=== PATIENT | female | born 1970 | race Caucasian/White ===

== ENCOUNTER 2021-03-30 15:33 | Emergency (ER) | payer BC ==
[2021-03-30] MEDS ORDERED: Dextrose 5%-Lactated Ringers 1,000 ML IV SCH (16:15)
[2021-03-30] MEDS ORDERED: diphenhydrAMINE 50 MG/ML SDV IVPUSH ONE (16:15)
[2021-03-30] MEDS ORDERED: Haloperidol Lactate 5 MG/ML SDV IM ONE (16:15)
--- NOTE | 2021-03-30 16:35 | CR ---
INDICATION: SOB TECHNIQUE: Chest 2 views. COMPARISON: None. FINDINGS: Cardiovascular and mediastinum: Heart size and vasculature are normal in caliber and appearance. Mediastinum is within normal limits. Lungs and pleural spaces: Lungs are clear. No sign of infiltrate or mass. No sign of pleural effusion. No pneumothorax. Bones and soft tissues: No significant findings. IMPRESSION: Unremarkable chest. Dictated by: Froylan Carmen MD @ 03/30/2021 16:33:15 (Electronically Signed)
[2021-03-30 17:00] LABS: BLOOD UREA NITROGEN,BUN 16 mg/dL (7.0-18.0); CARBON DIOXIDE,CO2 26.7 mmol/L (21.0-32.0); CHLORIDE,CL 98 mmol/L (98-107); GLUCOSE RANDOM 155 mg/dL (74-106); LIPASE 29 U/L (73-393); POTASSIUM,K 3.5 mmol/L (3.5-5.1); SODIUM,NA 135 mmol/L (136-145)
--- NOTE | 2021-03-30 17:24 | PCM.EKG ---
#1 Interpretation EKG Date: 03/30/21 Time: 16:26 Rhythm: NSR Rate (Beats/Min): 60 [place]: Normal P-Wave: Present QRS: Normal ST-T: Normal QT: Normal Comparison: NA - No Prior EKG EKG Interpretation Comments: Sinus Rhythm
--- NOTE | 2021-03-30 17:39 | EDM.PDOC ---
ED HPI GENERAL MEDICAL PROBLEM - General Chief Complaint: General Stated Complaint: JUST NOT FEELING WELL Time Seen by Provider: 03/30/21 15:40 - History of Present Illness INITIAL COMMENTS - FREE TEXT/NARRATIVE: CHIEF COMPLAINT(S): Not feeling well HISTORY OF PRESENT ILLNESS: This is a 50-year-old woman with a recent diagnosis of community-acquired pneumonia on antibiotics who comes to the emergency department with a chief complaint of not feeling well.. She states that she was seen at outside ER and was diagnosed with a pneumonia. She states that she has been taking the medications and still does not feel well. She states that she feels severely fatigued, is experiencing nausea but denies any pain. She states that when she went to the ER over there they gave her nitroglycerin and then told her there was nothing wrong with her heart and sent her home. She currently denies any chest pain, recent travel, recent surgery, prior history of DVT or PE. She denies any family history of early onset CAD or sudden at young age. She states that she is mainly concerned because she has not urinated today and she feels dehydrated. In addition she stated that since her son's in 2019 after he was murdered is when all of her medical problems started. She had multiple other stressors in life at that time. She denies any SI, HI. REVIEW OF SYSTEMS: Constitutional: Denies fever, chills. Eyes: Denies eye pain Ears, Nose, Mouth, & Throat: Denies earache Cardiovascular: Denies chest pain Respiratory: Denies shortness of breath Gastrointestinal: Positive for nausea. Denies abdominal pain, vomiting, diarrhea, hematochezia, hematemesis, bilious emesis Genitourinary: Positive for decreased urination. Denies hematuria Skin:Denies a rash MSK: Denies joint pain Neurological: Denies blurred vision Psychiatric: Denies depression PAST MEDICAL HISTORY: As per history of present illness and as reviewed below otherwise noncontributory. SURGICAL HISTORY: As per history of present illness and as reviewed below otherwise noncontributory. SOCIAL HISTORY: As per history of present illness and as reviewed below otherwise noncontributory. FAMILY HISTORY: As per history of present illness and as reviewed below otherwise noncontributory. EXAMINATION OF ORGAN SYSTEMS/BODY AREAS: Constitutional: Blood pressure is 142/103, heart rate 81, respiratory rate 20 with an oxygen saturation 98% on room air. Temperature 35.5 temporal General: Overall well-appearing woman who is in no acute distress Psychiatric: Appears mildly anxious and intermittently crying Eyes: No scleral icterus or conjunctival erythema ENMT: Mildly dry mucous membranes. No pharyngeal erythema. Cardiovascular: Regular, rate, and rhythm. No gallops, murmurs, or rubs. Bilateral upper extremity pulses symmetric and intact. No peripheral edema. No JVD. Respiratory: Lungs clear to auscultation bilaterally. No wheezes, rales, or rhonchi. Gastrointestinal: Soft, non-tender, non-distended. Mildly hyperactive bowel sounds no rebound or guarding Genitourinary: No suprapubic tenderness Musculoskeletal: Normal range of motion. Skin: No lesions or abrasions. Neurological: Alert, GCS 15 MEDICAL DECISION MAKING AND COURSE IN THE ED WITH INTERPRETATION/REVIEW OF DIAGNOSTIC STUDIES: This is a 50-year-old woman in with a recent diagnosis of who comes to the emergency department with generalized fatigue and not feeling well after having diagnosis of pneumonia at outside ER. The patient's vitals are normal. The temporal temperature at this time is low however she does not feel febrile. At this time it is uncertain as to what is causing the patient's symptoms however it does sound more like viral syndrome to me. Will obtain a broad work-up including CBC, CMP, lipase, magnesium, troponin, [id number] glucose. Will obtain a repeat 2 view chest x-ray. EKG was obtained which did not reveal any acute signs of ischemia. We will provide the patient Haldol and Benadryl for nausea relief and pain relief and provide her with 1 L of D5 lactated Ringer's. Laboratory: CBC does reveal a leukocytosis of 15.26 with normal indices and no left shift. CMP reveals hyponatremia at 135, mildly elevated creatinine at 1.1, hyperglycemia at 155, [id number] glucose was 148, troponin is negative and lipase is normal. The radiological images were viewed by myself along with reading the report from the radiologist. 2 view chest x-ray does not reveal any acute cardiopulmonary process. No evidence of any consolidation. After period of observation the patient was asking to leave the emergency department. At this time I do believe the patient is stable for discharge. Encourage the patient to continue with her antibiotics and that I would send her prescription for antinausea medication to be used for nausea every 6 hours. She is to return for any new or worsening symptoms such as chest pain, worsening shortness of breath, or inability to tolerate any fluids. She was amenable discharge and had no further questions DISPOSITION: The patient was discharged home in stable condition. The patient will follow up with primary care physician in 2 to 3 days CONDITION: Fair PROCEDURES: None FINAL IMPRESSION(S)/DIAGNOSES: 1. Acute viral syndrome Julio C Valdez M.D. chest Pain Score (Numeric/FACES): 5 - Related Data Allergies Allergy/AdvReac Type Severity Reaction Status Date / Time morphine Allergy Swelling Verified 03/30/21 15:53 Penicillins Allergy Swelling Verified 03/30/21 15:53 Home Meds: Home Meds Ondansetron [Zofran ODT] 4 mg PO Q6H PRN #8 tab.dis 03/30/21 [Rx] Past Medical History Cardiovascular History: Reports: Other (See Below) Other Cardiovascular History: undiagnosed "heart condition" Psychiatric History: Reports: Anxiety Endocrine/Metabolic History: Reports: Diabetes, Type II - Infectious Disease History Infectious Disease History: Reports: Chicken Pox, Mumps Social & Family History - Family History Family Medical History: No Pertinent Family History - Tobacco Use Packs/Tins Daily: 1 - Caffeine Use Caffeine Use: Reports: None - Recreational Drug Use Recreational Drug Use: Yes Recreational Drug Type: Reports: Marijuana/Hashish Recreational Drug Use Frequency: Daily ED ROS GENERAL - Review of Systems Review Of Systems: See Below ED EXAM, GENERAL - Physical Exam Exam: See Below Course - Vital Signs Last Recorded V/S: Last Vital Signs Temp 35.5 C L 03/30/21 15:40 Pulse 70 03/30/21 17:48 Resp 18 03/30/21 17:48 BP 136/91 H 03/30/21 17:48 Pulse Ox 98 03/30/21 17:48 - Orders/Labs/Meds Labs: Laboratory Tests 03/30/21 03/30/21 03/30/21 Range/Units 16:29 16:30 16:30 WBC 15.26 H (4.0-11.0) K/uL RBC 4.51 (4.30-5.90) M/uL Hgb 14.8 (12.0-16.0) g/dL Hct 41.9 (36.0-46.0) % MCV 92.9 (80.0-98.0) fL MCH 32.8 H (27.0-32.0) pg MCHC 35.3 (31.0-37.0) g/dL RDW Std Deviation 42.9 (28.0-62.0) fl RDW Coeff of Crystal 13 (11.0-15.0) % Plt Count 345 (150-400) K/uL MPV 9.30 (7.40-12.00) fL Neut % (Auto) 64.8 (48.0-80.0) % Lymph % (Auto) 28.2 (16.0-40.0) % Harvey % (Auto) 6.0 (0.0-15.0) % Eos % (Auto) 0.8 (0.0-7.0) % Baso % (Auto) 0.2 (0.0-1.5) % Neut # (Auto) 9.9 H (1.4-5.7) K/uL Lymph # (Auto) 4.3 H (0.6-2.4) K/uL Harvey # (Auto) 0.9 H (0.0-0.8) K/uL Eos # (Auto) 0.1 (0.0-0.7) K/uL Baso # (Auto) 0.0 (0.0-0.1) K/uL Nucleated RBC % 0.0 /100WBC Nucleated RBCs # 0 K/uL Sodium 135 L (136-145) mmol/L Potassium 3.5 (3.5-5.1) mmol/L Chloride 98 (98-107) mmol/L Carbon Dioxide 26.7 (21.0-32.0) mmol/L BUN 16 (7.0-18.0) mg/dL Creatinine 1.1 H (0.6-1.0) mg/dL Est Cr Clr Drug Dosing 57.91 mL/min Estimated GFR (MDRD) 52.8 ml/min Glucose 155 H (74-106) mg/dL POC Glucose 148 H (70-99) mg/dL Calcium 9.9 (8.5-10.1) mg/dL Magnesium 2.0 (1.8-2.4) mg/dL Total Bilirubin 0.5 (0.2-1.0) mg/dL AST 22 (15-37) IU/L ALT 27 (14-63) IU/L Alkaline Phosphatase 92 (46-116) U/L Troponin I < 0.050 (0.000-0.056) ng/mL Total Protein 8.1 (6.4-8.2) g/dL Albumin 3.9 (3.4-5.0) g/dL Globulin 4.2 H (2.6-4.0) g/dL Albumin/Globulin Ratio 0.9 (0.9-1.6) Lipase 29 L (73-393) U/L Meds: Medications Discontinued Medications Generic Name Dose Route Start Last Admin Trade Name Freq PRN Reason Stop Dose Admin Diphenhydramine HCl 50 mg 03/30/21 16:15 03/30/21 16:43 Diphenhydramine 50 Mg/Ml Sdv IVPUSH 03/30/21 16:16 50 mg ONETIME ONE Administration Haloperidol Lactate 5 mg 03/30/21 16:15 03/30/21 16:43 Haloperidol Lactate 5 Mg/Ml Sdv IM 03/30/21 16:16 5 mg ONETIME ONE Administration Dextrose/Lactated Ringer's 1,000 mls @ 999 mls/hr 03/30/21 16:15 03/30/21 16:43 Dextrose 5%-Lactated Ringers IV 999 mls/hr ASDIRECTED TEQUILA Administration Departure - Departure Time of Disposition: 17:39 Disposition: Home, Self-Care 01 Condition: Fair Clinical Impression: Vomiting - Discharge Information *PRESCRIPTION DRUG MONITORING PROGRAM REVIEWED*: No *COPY OF PRESCRIPTION DRUG MONITORING REPORT IN PATIENT TAURUS: No Prescriptions: Ondansetron [Zofran ODT] 4 mg PO Q6H PRN #8 tab.dis PRN Reason: Nausea/Vomiting Instructions: Nausea and Vomiting, Adult, [id number] Referrals: PCP,None [Primary Care Provider] - Forms: ED Department Discharge Additional Instructions: You were evaluated today on an emergent basis. At this time your x-ray and your rhythm strip of your heart were normal. You did have an elevated white count which does indicate an infection. I would continue taking your antibiotics as p rescribed. In addition to this there was no other abnormalities on your labs. I do recommend that you continue with fluid hydration either Gatorade or Pedialyte and start with a liquid diet and then move up over the next few days. If you have any worsening abdominal pain, chest pain or inability to tolerate any fluids please return to the emergency department. Otherwise please follow-up with your primary care physician within 2 to 3 days. If you do not have a primary care physician please contact one of the numbers below and set up an appointment. [facility] [address] [place] [id number] [facility] [address] [place] [id number] The patient is informed of any results of their evaluation and diagnostic workup and all questions are answered. They are given discharge instructions and return precautions. The patient is stable for discharge. The patient states they understand and agree with the plan and that they will return if their symptoms get worse or if they have any new concerns. The following information is given to patients seen in the emergency department who are being discharged to home. This information is to outline your options for follow-up care. We provide all patients seen in our emergency department with a follow-up referral. The need for follow-up, as well as the timing and circumstances, are variable depending upon the specifics of your emergency department visit. If you don't have a primary care physician on staff, we will provide you with a referral. We always advise you to contact your personal physician following an emergency department visit to inform them of the circumstance of the visit and for follow-up with them and/or the need for any referrals to a consulting specialist. The emergency department will also refer you to a specialist when appropriate. This referral assures that you have the opportunity for follow-up care with a specialist. All of these measure are taken in an effort to provide you with optimal care, which includes your follow-up. Under all circumstances we always encourage you to contact your private physician who remains a resource for coordinating your care. When calling for follow-up care, please make the office aware that this follow-up is from your recent emergency room visit. If for any reason you are refused follow-up, please contact the [facility] Emergency Department at and asked to speak to the emergency department charge nurse. Sepsis Event Note (ED) - Evaluation Sepsis Screening Result: No Definite Risk
== END 2021-03-30 17:55 | disposition home or self-care (01) ==
LOC: MW.ED 15:33
DX: B34.9 Viral infection, unspecified (principal); E11.9 Type 2 diabetes mellitus without complications; Z88.5 Allergy status to narcotic agent; Z88.0 Allergy status to penicillin; Z72.0 Tobacco use
CPT/HCPCS: 36415; 71046; 80053; 82947; 83690; 83735; 84484; 85025; 93005; 96372; 96374; 99284; J1200; J1630; J7121; 93010; 99283